=== PATIENT | male | born 1965 | race Caucasian/White ===

== ENCOUNTER 2022-09-12 05:23 | Day surgery (SDC) | payer OTHER ==
[2022-09-07 10:54] VITALS: BMI 26.6
[2022-09-12] MEDS ORDERED: ACETAMINOPHEN 1000 MG/100 ML BAG IVPB ONE (08:04)
[2022-09-12] MEDS ORDERED: PROPOFOL 40 ML ONE (08:09)
[2022-09-12] MEDS ORDERED: ceFAZolin SODIUM 1 GM VIAL IVPB ONE (08:20)
[2022-09-12] MEDS ORDERED: oxyCODONE HCL 5 MG TABLET PO PRN (09:00)
[2022-09-12] MEDS ORDERED: ONDANSETRON 4 MG/2 ML VIAL IVPUSH PRN (09:00)
[2022-09-12] MEDS ORDERED: ACETAMINOPHEN INJECTION 100 ML IVPB ONE (09:09)
[2022-09-12 10:44] VITALS: PULSE 60
[2022-09-12 11:08] VITALS: BP 136/87; RESP 16; TEMP 97.5
== END 2022-09-12 11:10 | disposition home or self-care (01) ==
LOC: JASU-SURG 05:23
PROVIDERS: ATTEND Urology
PROC: 0TC78ZZ Extirpation of Matter from Left Ureter, Via Natural or Artificial Opening Endoscopic (ICD-10-PCS; principal; 2022-09-12 08:00)
DX: N20.1 Calculus of ureter (principal)
CPT/HCPCS: 76000-TC-FY; 94760; C1758